=== PATIENT | female | born 1985 | race Caucasian/White ===

== ENCOUNTER 2019-01-18 06:00 | Inpatient (IN) | payer BC ==
[2019-01-18] MEDS ORDERED: OXYTOCIN 10 UNIT/ML 1 ML VIAL IM PRN (07:23)
[2019-01-18] MEDS ORDERED: CARBOPROST TROMETHAMINE 250 MCG/ML 1 ML AMP IM PRN (07:23)
[2019-01-18] MEDS ORDERED: TERBUTALINE 1 MG/ML VIAL SQ PRN (07:23)
[2019-01-18] MEDS ORDERED: AMPICILLIN 2,000 MG in SODIUM CHLORIDE 0.9% 100 ML IVPB STA (07:23)
[2019-01-18] MEDS ORDERED: LIDOCAINE 0.5% (PF) 5 MG/ML (50 ML SDV) SQ PRN (07:23)
[2019-01-18] MEDS ORDERED: METHYLERGONOVINE 0.2 MG/ML 1 ML AMP IM PRN (07:23)
[2019-01-18] MEDS ORDERED: OXYTOCIN 30 UNITS/500 ML NS 30 UNIT in SALINE 1 500ML.BAG IV SCH (07:30)
[2019-01-18] MEDS: LACTATED RINGERS 1,000 ML IV SCH ×4 (07:39→18:51)
[2019-01-18 07:54] LABS: Basophils % (A) 0 %; Eosinophils # (A) 0.1 k/uL (0-0.7); Eosinophils % (A) 1 %; HCT 38.3 % (34.0-46.0); HGB 13.2 gm/dL (11.4-16.0); Lymphocytes # (A) 1.7 k/uL (1.0-4.8); Lymphocytes % (A) 19 %; MCH 30.7 pg (25.0-35.0); MCHC 34.3 g/dL (31.0-37.0); MCV 89.3 fL (80.0-100.0); Mean Platelet Volume 8.7; Monocytes # (A) 0.6 k/uL (0-1.0); Monocytes % (A) 7 %; Neutrophils # (A) 6.6 k/uL (1.3-7.7); Neutrophils % (A) 72 %; Platelet Count 193 k/uL (150-450); RBC 4.29 m/uL (3.80-5.40); RDW 14.4 % (11.5-15.5); WBC 9.1 k/uL (3.8-10.6)
[2019-01-18 08:06] VITALS: BMI 33.0
[2019-01-18] MEDS ORDERED: fentaNYL (PF) 50 MCG/ML 5 ML AMP ONE (10:29)
[2019-01-18] MEDS ORDERED: ROPIVACAINE 5MG/ML 20ML VIAL ONE (10:29)
[2019-01-18] MEDS ORDERED: SODIUM CHLORIDE 0.9% 100 ML BAG ONE (10:29)
[2019-01-18] MEDS: AMPICILLIN 1,000 MG in SODIUM CHLORIDE 0.9% 50 ML IVPB SCH ×2 (12:01→18:51)
[2019-01-18] MEDS ORDERED: diphenhydrAMINE 50 MG/ML 1 ML VIAL IVP PRN ×2 (13:48)
[2019-01-18] MEDS ORDERED: ZOLPIDEM 5 MG TAB PO PRN (13:48)
[2019-01-18] MEDS ORDERED: diphenhydrAMINE 50 MG CAP PO PRN (13:48)
[2019-01-18] MEDS ORDERED: HYDROcodone/APAP 5-325MG 1 EACH TAB PO PRN (13:48)
[2019-01-18] MEDS ORDERED: ACETAMINOPHEN TAB 325 MG TAB PO PRN (13:48)
[2019-01-18] MEDS ORDERED: BENZOCAINE/MENTHOL SPRAY 1 GM/SPRAY AEROSOL TOPICAL PRN (13:48)
[2019-01-18] MEDS ORDERED: SIMETHICONE 80 MG CHEWABLE PO PRN (13:48)
[2019-01-18] MEDS ORDERED: diphenhydrAMINE 25 MG CAP PO PRN (13:48)
[2019-01-18] MEDS ORDERED: LANOLIN CREAM 5 GM TUBE TOPICAL PRN (13:48)
[2019-01-18] MEDS ORDERED: WITCH HAZEL 1 EACH MED..PAD TOPICAL PRN (13:48)
[2019-01-18] MEDS ORDERED: HYDROCORTISONE 2.5% RECTAL CREAM 30 GM TUBE RECTAL PRN (13:48)
--- NOTE | 2019-01-18 13:54 | P.HPOB ---
History of Present Illness H&P Date: 01/18/19 Chief Complaint: IUP 39 0/7 weeks, AUGIE This is a pleasant 33-year-old 4 para 3003 at 39-0/7 weeks that presents to labor and delivery for induction of labor. Patient had been receiving routine care in [place] and transferred over to the [facility] for delivery. Patient has a history of gestational diabetes that is diet controlled truly more hypoglycemia then high sugars, hemorrhage with her second delivery and significant anxiety secondary to hemorrhage with her second delivery. Patient notes good movement today she denies contractions denies loss of fluid or vaginal bleeding. On blood work shows a blood type of O+, rubella immune, hepatitis B surface antigen negative, RPR nonreactive, GBS positive. Review of Systems Constitutional: Denies chills, Denies fatigue, Denies fever Ears, nose, mouth and throat: Denies headache Cardiovascular: Reports leg edema Gastrointestinal: Denies constipation, Denies diarrhea, Denies nausea, Denies vomiting Genitourinary: Reports Psychiatric: Reports anxiety Past Medical History Past Medical History: No Reported History History of Any Multi-Drug Resistant Organisms: None Reported Past Surgical History: Cholecystectomy, Orthopedic Surgery Additional Past Surgical History / Comment(s): wisdom teeth Past Anesthesia/Blood Transfusion Reactions: No Reported Reaction Additional Past Anesthesia/Blood Transfusion Reaction / Comment(s): blood pressure drop with epidural Past Psychological History: Anxiety Smoking Status: Never smoker Past Alcohol Use History: None Reported Past Drug Use History: None Reported - Past Family History Mother Family Medical History: Hypertension Father Family Medical History: Hyperlipidemia Medications and Allergies Home Medications Medication Instructions Recorded Confirmed Type No Known Home Medications 01/18/19 01/18/19 History Allergies Allergy/AdvReac Type Severity Reaction Status Date / Time morphine Allergy Rash/Hives Verified 01/18/19 07:22 Exam Osteopathic Statement: *. No significant issues noted on an osteopathic structural exam other than those noted in the History and Physical/Consult. Vital Signs Temp Pulse Resp BP Pulse Ox 01/18/19 07:21 97.8 F 91 16 138/88 98 Intake and Output 01/17/19 01/18/19 01/18/19 22:59 06:59 14:59 Other: Weight 104.326 kg Targeted physical exam is performed and the state and also well-nourished well- developed female in no acute distress, breathing is to be nonlabored heart has a regular rate and rhythm abdomen is gravid and appropriate for gestational age, lower extremity edema is noted +1, on cervical exam she was 4/80/-2 heart tones returned be category 1 and she was ruth irregularly. Results Result Diagrams: 01/18/19 07:40
--- NOTE | 2019-01-18 13:56 | P.PROBDLV ---
Vaginal Delivery Note - . Vaginal Delivery Note: This is a pleasant 33-year-old 4 para 3003 that presented to labor and delivery for elective induction of labor. Patient was admitted and Pitocin augmentation of labor was begun patient progressed through labor and was noted to be 6-7 cm. Patient did request epidural placement prior to this. Epidural was placed without difficulty by the anesthesia department. Patient underwent amniotomy and clear fluid was obtained. Patient progressed to complete began pushing and had a normal spontaneous vaginal delivery of a viable male infant at 1311, weight of 8 lbs. 5 oz. with Apgars of 9 and 9 at one and 5 minutes respect daily. After two-minute delayed the umbo cord was doubly clamped and cut and the placenta was delivered spontaneously intact with a three-vessel cord being noted. Per patient request cord blood registry blood was taken. Along with cord blood given she is O+. Inspection the patient's vaginal vault a first- degree vaginal laceration was noted to [id number] sutures were used to obtain closure and hemostasis. The uterus is noted be firm and below the umbilicus. History blood loss for this delivery 300 mL Patient and tolerated delivery well and are resting comfortably.
[2019-01-18] MEDS ORDERED: OXYTOCIN 20 UNITS/1000 ML NS 1,000 ML IV SCH (14:00)
[2019-01-18 20:32] VITALS: TEMP 97.9
[2019-01-18] MEDS: SENNOSIDES-DOCUSATE SODIUM 1 EACH TAB PO SCH (23:57)
[2019-01-19] MEDS: IBUPROFEN 600 MG TAB PO PRN ×3 (01:28→14:10)
[2019-01-19 06:28] LABS: Basophils % (A) 0 %; Eosinophils # (A) 0.2 k/uL (0-0.7); Eosinophils % (A) 1 %; HGB 12.8 gm/dL (11.4-16.0); Lymphocytes # (A) 1.6 k/uL (1.0-4.8); Lymphocytes % (A) 15 %; MCHC 33.8 g/dL (31.0-37.0); Mean Platelet Volume 8.5; Monocytes # (A) 0.6 k/uL (0-1.0); Monocytes % (A) 6 %; Neutrophils # (A) 8.3 k/uL (1.3-7.7); Neutrophils % (A) 77 %; Platelet Count 169 k/uL (150-450); RBC 4.27 m/uL (3.80-5.40); RDW 14.7 % (11.5-15.5); WBC 10.8 k/uL (3.8-10.6)
[2019-01-19] MEDS: SENNOSIDES-DOCUSATE SODIUM 1 EACH TAB PO SCH (08:00)
[2019-01-19 09:07] VITALS: BP 124/76; PULSE 91; RESP 18
--- NOTE | 2019-01-19 09:25 | P.DS ---
Providers Date of admission: 01/18/19 07:08 Expected date of discharge: 01/19/19 Attending physician: Hortencia Anderson Primary care physician: Stated None - Discharge Diagnosis(es) (1) Term Current Visit: Yes Status: Acute (2) Positive GBS test Current Visit: Yes Status: Acute Hospital Course: This is a pleasant 33-year-old 4 para 3003 at 39-0/7 weeks that presented to labor and delivery yesterday for elective induction of labor. Patient was admitted and Pitocin induction of labor was begun. Given her group beta strep positive status antibiotics were started. Amniotomy was performed after epidural had been placed. Clear fluid was obtained. Patient did receive 2 doses of antibiotics prior to delivery in addition. Patient progressed to complete began pushing and had normal spontaneous vaginal delivery of a viable male with a weight of 8 lbs. 5 oz., Apgars of 99 at one and 5 minutes respect weight. Patient's course has been uneventful. She is ambulating and voiding without difficulty. She is tolerating a regular diet without nausea or vomiting. She is breast-feeding without difficulty. She does wish discharge home at 24 hours. Patient Condition at Discharge: Good Plan - Discharge Summary New Discharge Prescriptions: No Action No Known Home Medications Discharge Medication List No Known Home Medications 01/18/19 [History] Follow up Appointment(s)/Referral(s): Hortencia Anderson DO [Doctor of Osteopathic Medicine] - 4 Weeks Patient Instructions/Handouts: Vaginal Delivery (DC), Vaginal Delivery (GEN) Discharge Disposition: HOME SELF-CARE
== END 2019-01-19 15:55 | disposition home or self-care (01) | DRG 807 ==
LOC: 4FBP 07:08
PROVIDERS: ADMIT Obstetrics & Gynecology Obstetrics; ATTEND Obstetrics & Gynecology Obstetrics
PROC: 3E0R3BZ Introduction of Anesthetic Agent into Spinal Canal, Percutaneous Approach (ICD-10-PCS; principal; 2019-01-18)
PROC: 0HQ9XZZ Repair Perineum Skin, External Approach (ICD-10-PCS; principal; 2019-01-18)
PROC: 10907ZC Drainage of Amniotic Fluid, Therapeutic from Products of Conception, Via Natural or Artificial Opening (ICD-10-PCS; principal; 2019-01-18)
PROC: 10E0XZZ Delivery of Products of Conception, External Approach (ICD-10-PCS; principal; 2019-01-18)
PROC: 00HU33Z Insertion of Infusion Device into Spinal Canal, Percutaneous Approach (ICD-10-PCS; principal; 2019-01-18)
DX: O99.824 Streptococcus B carrier state complicating childbirth (principal); Z37.0 Single live birth; O99.344 Other mental disorders complicating childbirth; O71.4 Obstetric high vaginal laceration alone; F41.9 Anxiety disorder, unspecified; Z3A.39 39 weeks gestation of pregnancy; Z82.49 Family history of ischemic heart disease and other diseases of the circulatory system; Z90.49 Acquired absence of other specified parts of digestive tract; Z98.890 Other specified postprocedural states; Z83.49 Family history of other endocrine, nutritional and metabolic diseases; Z88.5 Allergy status to narcotic agent
CPT/HCPCS: 85025; 86850; 86900; 86901